=== PATIENT | female | born 1995 | race African-American/Black ===

== ENCOUNTER 2017-05-19 04:31 | Emergency (ER) | payer OTHER, SELFPAY | END 2017-05-19 05:11 | disposition home or self-care (01) | LOC: ERS 04:31 | DX: L70.0 Acne vulgaris (principal); F41.9 Anxiety disorder, unspecified | CPT/HCPCS: 99282 ==

== ENCOUNTER 2018-03-07 01:27 | Emergency (ER) | payer SELFPAY | END 2018-03-07 02:32 | disposition home or self-care (01) | LOC: ERS 01:27 | DX: L42 Pityriasis rosea (principal); F41.9 Anxiety disorder, unspecified | CPT/HCPCS: 99282 ==

== ENCOUNTER 2018-05-23 18:38 | Emergency (ER) | payer SELFPAY | END 2018-05-23 19:33 | disposition home or self-care (01) | LOC: ERS 18:38 | DX: J06.9 Acute upper respiratory infection, unspecified (principal); F41.9 Anxiety disorder, unspecified | CPT/HCPCS: 99283 ==

== ENCOUNTER 2020-01-31 22:26 | Emergency (ER) | payer SELFPAY ==
--- NOTE | 2020-01-31 23:10 | RAD ---
3 views of the right foot: 01/31/2020 COMPARISON: None HISTORY: Foot pain and swelling FINDINGS: No displaced fracture or evidence of dislocation. No radiopaque foreign body or subcutaneou s gas. Pression: No acute fracture or dislocation seen.
== END 2020-01-31 23:49 | disposition home or self-care (01) ==
LOC: ERS 22:26
DX: M79.89 Other specified soft tissue disorders (principal); F41.9 Anxiety disorder, unspecified

== ENCOUNTER 2020-04-09 14:31 | Emergency (ER) | payer SELFPAY ==
[2020-04-09] MEDS ORDERED: Ibuprofen 800 MG TAB ONE (15:07)
--- NOTE | 2020-04-09 15:35 | RAD ---
RADIOGRAPH LEFT HAND 3VIEWS: DATE: 04/09/2020 HISTORY: 25-year-old female with acute traumatic left hand pain after hyperextension injury of thumb FINDINGS: There is no evidence of fracture or dislocation. There is no evidence of periostitis, permeative lesi on, osteolytic lesion, or osteoblastic lesion. The joint spaces are maintained without erosions or significant osteophytes. IMPRESSION: Normal
== END 2020-04-09 15:44 | disposition home or self-care (01) ==
LOC: ERS 14:31
DX: S69.91XA Unspecified injury of right wrist, hand and finger(s), initial encounter (principal); W01.198A Fall on same level from slipping, tripping and stumbling with subsequent striking against other object, initial encounter
CPT/HCPCS: 29125

== ENCOUNTER 2020-05-22 15:45 | Emergency (ER) | payer SELFPAY | END 2020-05-22 17:38 | disposition home or self-care (01) | LOC: ERS 15:45 | DX: L03.211 Cellulitis of face (principal) | CPT/HCPCS: 99283 ==

== ENCOUNTER 2020-11-15 17:58 | Emergency (ER) | payer SELFPAY ==
[2020-11-16 11:57] LABS: SARS-CoV-2 PCR by NAA DETECTED (NotDetected)
== END 2020-11-15 21:17 | disposition home or self-care (01) ==
LOC: ERS 17:58
DX: U07.1 COVID-19 (principal)
CPT/HCPCS: 87804; 99284; U0003; U0005

== ENCOUNTER 2021-02-18 17:00 | Emergency (ER) | payer OTHER ==
[2021-02-18 17:45] LABS: #Basophils 0.1 thou/uL (0.0-0.2); #Eosinphils 0.3 thou/uL (0.0-0.7); #Lymphocytes 2.5 thou/uL (1.20-3.40); #Monocytes 0.5 thou/uL (0.11-0.59); #Neutrophils 3.9 thou/uL (1.40-6.50); %Basophils 1.2 % (0.0-1.0); %Eosinophils 3.9 % (0.0-10.0); %Lymphocytes 33.9 % (21.0-51.0); %Monocytes 7.4 % (0.0-10.0); %Neutrophils 53.6 % (42.0-75.0); Mean Corpuscular Hemoglobin 28.2 pg (27.0-31.0); Mean Corpuscular Volume 85.5 fL (78.0-98.0); Mean Platelet Volume 6.9 fL (7.4-10.4); Platelet Count 330 thou/uL (130-400); RBC Distribution Width 11.3 % (11.5-14.5); Red Blood Cell (RBC) Count 4.96 mill/uL (4.20-5.40); White Blood Cell (WBC) Count 7.3 thou/uL (4.8-10.8)
[2021-02-18 18:03] LABS: Bilirubin Negative (Negative); Blood, Urine Negative (Negative); Clarity Clear (Clear); Glucose, Urine (Dipstick) Normal (Negative); Ketone, Urine Trace mg/dL (Negative); Leukocyte Negative Leu/uL (Negative); Nitrite Negative (Negative); Protein, Urine (Dipstick) Negative (Neg-Trace); Specific Gravity, Urine 1.014 (1.002-1.036); Urobilinogen Normal mg/dL (Less than 2); pH, Urine 6.5 (5.0-9.0)
[2021-02-18 18:04] LABS: Pregnancy Test - Urine (BHCG) Negative (Negative); Pregu Control Background? CLEAR/WHITE (CLR/WHITE); Pregu Control Bar Appear? YES (CONTROL BAR); Specific Gravity 1.014 (1.002-1.036)
[2021-02-18 18:07] LABS: ALT (SGPT) 12 U/L (8-55); AST (SGOT) 14 U/L (5-34); Albumin 3.9 g/dL (3.5-5.0); Alkaline Phosphatase 81 U/L (40-110); Anion Gap 11 mmol/L (10-20); BUN (Urea Nitrogen) 8 mg/dL (7.0-18.7); Bilirubin, Total 0.4 mg/dL (0.2-1.2); Calc. Creatinine Clearance 0 mL/min (70-130); Calcium 9.4 mg/dL (7.8-10.44); Carbon Dioxide 26 mmol/L (22-29); Chloride 106 mmol/L (98-107); Globulin 3.3 g/dL (2.4-3.5); Glucose 90 mg/dL (70-105); Protein, Total 7.2 g/dL (6.0-8.3); Sodium 139 mmol/L (136-145)
== END 2021-02-18 19:42 | disposition home or self-care (01) ==
LOC: ERS 17:00
DX: R10.30 Lower abdominal pain, unspecified (principal); F17.200 Nicotine dependence, unspecified, uncomplicated
CPT/HCPCS: 36415; 80053; 81003; 81025; 83690; 85025; 96372; 99284; J0500